=== PATIENT | male | born 1960 | race Caucasian/White ===

== ENCOUNTER 2023-12-06 14:50 | Emergency (ER) | payer SELFPAY ==
[2023-12-06] MEDS ORDERED: Sodium Chloride 0.9% 10 ML Syringe FLUSH PRN (15:01)
[2023-12-06 15:12] LABS: BASOPHILS PERCENT AUTO 0.2 % (0.0-1.0); EOSINOPHILS PERCENT AUTO 0.2 % (0.0-6.0); HEMATOCRIT 44.7 % (42.0-52.0); HEMOGLOBIN 15.5 gm/dl (14.0-18.0); IMMATURE GRAN ABSOLUTE AUTO 0.06 K/mm3 (0.00-0.05); IMMATURE GRAN PERCENT AUTO 0.5 % (0.0-0.4); LYMPHOCYTES ABSOLUTE AUTO 1.6 K/mm3 (1.0-4.8); LYMPHOCYTES PERCENT AUTO 12.9 % (24.0-44.0); MEAN CORPUSCULAR HEMOGLOBIN 30.2 pg (28.0-32.0); MEAN CORPUSCULAR HGB CONC 34.7 g/dl (32.0-36.0); MEAN CORPUSCULAR VOLUME 87.1 fl (83.0-99.0); MEAN PLATELET VOLUME 9.2 fl (9.4-12.4); MONOCYTES ABSOLUTE AUTO 0.7 K/mm3 (0.0-0.8); MONOCYTES PERCENT AUTO 5.6 % (0.0-8.0); NEUTROPHILS ABSOLUTE AUTO 9.8 K/mm3 (1.8-7.7); NEUTROPHILS PERCENT AUTO 80.6 % (41.0-71.0); PLATELET COUNT,PLT 254 K/mm3 (150-400); RED BLOOD CELL COUNT 5.13 M/mm3 (4.52-5.90); WHITE BLOOD CELL COUNT,WBC 12.17 K/mm3 (3.9-11.3)
[2023-12-06] MEDS: Aspirin 81 MG Tab.Chew PO ONE (15:12)
[2023-12-06] MEDS: Sodium Chloride 0.9% 1,000 ML IV SCH (15:20)
[2023-12-06 15:41] LABS: ANION GAP 13.1 (5-15); BILIRUBIN TOTAL 0.9 mg/dL (0.2-1.0); BUN/CREATININE RATIO 17.7 (14-18); CALCIUM 10.3 mg/dL (8.5-10.1); CREATININE 1.3 mg/dL (0.7-1.3); EST CRCL DRUG DOSING (CG) 60.05 mL/min; MAGNESIUM 1.7 mg/dL (1.8-2.4)
[2023-12-06 15:47] LABS: POTASSIUM,K 4.1 mEq/L (3.5-5.1)
== END 2023-12-06 17:48 | disposition home or self-care (01) ==
LOC: JD.ED 14:50
DX: R07.89 Other chest pain (principal); E86.0 Dehydration; R12 Heartburn; E78.00 Pure hypercholesterolemia, unspecified; Z86.16 Personal history of COVID-19; Z79.899 Other long term (current) drug therapy
CPT/HCPCS: 36415; 71045; 71045-26; 80053; 83735; 84484; 85025; 93005; 93010; 96360; 96361; 99283; 99285-25; J7030